=== PATIENT | male | born 1990 | race Caucasian/White ===

== ENCOUNTER 2019-01-30 15:48 | Emergency (ER) | payer MEDICAID ==
[2019-01-30 15:59] VITALS: BP 122/68
[2019-01-30 16:17] LABS: BASOPHILS # (AUTO) 0.04 x10^3/uL (0-0.1); BASOPHILS % (AUTO) 0 % (0-1); EOSINOPHILS # (AUTO) 0.14 x10^3/uL (0-0.4); EOSINOPHILS % (AUTO) 1 % (1-7); LYMPHOCYTES # (AUTO) 2.05 x10^3/uL (1-3.4); LYMPHOCYTES % (AUTO) 20 % (22-44); MD NO; MEAN CORPUSCULAR HEMOGLOBIN 30.4 pg (27.5-34.5); MEAN CORPUSCULAR HGB CONC 33.5 g/dL (33.2-36.2); MEAN CORPUSCULAR VOLUME 90.9 fL (81-97); MEAN PLATELET VOLUME 7.8 fL (7.4-10.4); MONOCYTES # (AUTO) 0.47 x10^3/uL (0.2-0.8); MONOCYTES % (AUTO) 5 % (2-9); NEUTROPHILS # (AUTO) 7.66 x10^3/uL (1.8-6.8); NEUTROPHILS % (AUTO) 74 % (42-75); PLATELET COUNT 339 x10^3/uL (130-400); RED BLOOD COUNT 4.74 x10^6/uL (4.38-5.82); RED CELL DISTRIBUTION WIDTH 14.8 % (9.4-14.8)
[2019-01-30 16:28] LABS: ALBUMIN 3.5 g/dL (3.4-5.0); ANION GAP 7 mmol/L (5-15); CALCIUM 9.3 mg/dL (8.5-10.1); CHLORIDE 106 mmol/L (98-107); CREATININE 0.92 mg/dL (0.7-1.3)
[2019-01-30 16:44] LABS: SALICYLATE LEVEL < 1.7 mg/dL (2.8-20.0)
--- NOTE | 2019-01-30 16:50 | NUR ---
Pt in bed, in suicide secured room, belongings bag x 1 stored in locker, sitter at doorway, meal tray ordered, no other needs at this time, awaiting psych placement, [facility].
[2019-01-30 17:05] LABS: AMPHETAMINE SCREEN, URINE Negative (Negative); BARBITURATE SCREEN, URINE Negative (Negative); BENZODIAZEPINE SCREEN, URINE Negative (Negative); CANNABINOID SCREEN, URINE Negative (Negative); COCAINE SCREEN, URINE Negative (Negative); METHADONE SCREEN, URINE Negative (Negative); OPIATE SCREEN, URINE Negative (Negative)
--- NOTE | 2019-01-30 17:50 | NUR ---
Pt asleep in bed in suicide secured room, sitter at doorway, awaiting psych placement, [facility].
--- NOTE | 2019-01-30 19:01 | NUR ---
Bedside report to Josh. Pt asleep in bed in suicide secured room, sitter at doorway, awaiting psych placement, [facility].
--- NOTE | 2019-01-30 19:02 | NUR ---
Received report from Stefanie. This RN to assume care. Introduced self to patient and gave meal tray.
--- NOTE | 2019-01-30 20:03 | NUR ---
Patient in [facility] resting without complaints. Respirations even and unlabored. Sitter outside.
--- NOTE | 2019-01-30 21:08 | NUR ---
Patient asleep in [facility]. Respirations even and unlabored. Sitter outside room.
[2019-01-31] MEDS ORDERED: QUET50TA5 PO (01:30)
[2019-01-31] MEDS ORDERED: MELO7.5T31 PO (01:30)
[2019-01-31] MEDS ORDERED: BUPR-86 PO (01:30)
[2019-01-31] MEDS ORDERED: TRAZ50TA66 PO (01:30)
== END 2019-01-30 22:20 ==
LOC: ED 19:25
DX: R45.851 Suicidal ideations (principal)
CPT/HCPCS: 36415; 80048; 80307; 82040; 85025; 99285

== ENCOUNTER 2019-01-30 20:58 | Inpatient (IN) | payer MEDICAID ==
[~2019-01-30] VITALS: Ht 166.6 cm; Wt 157.4 kg
[2019-01-30 22:00] VITALS: BP 104/73
[2019-01-30] MEDS ORDERED: ONDANSETRON ODT 4 MG PO PRN (22:00)
[2019-01-30] MEDS ORDERED: BISACODYL 10 MG SUPP PR PRN (22:00)
[2019-01-30] MEDS ORDERED: ACETAMINOPHEN 325 MG TABLET PO PRN (22:00)
[2019-01-30] MEDS ORDERED: POLYETHYLENE GLYCOL 17 GM PACKET PO PRN (22:00)
[2019-01-30] MEDS ORDERED: DOCUSATE 100 MG CAPSULE PO PRN (22:00)
[2019-01-31 00:50] LABS: MICROSCOPIC NOT IND
[2019-01-31 00:59] LABS: CULTURE INDICATED? NO
[2019-01-31] MEDS ORDERED: MELO7.5T31 PO (01:30)
[2019-01-31] MEDS ORDERED: TRAZ50TA66 PO (01:30)
[2019-01-31] MEDS ORDERED: BUPR-86 PO (01:30)
[2019-01-31] MEDS ORDERED: QUET50TA5 PO (01:30)
[2019-01-31 01:50] VITALS: BP 104/73
[2019-01-31 05:36] LABS: BASOPHILS # (AUTO) 0.08 x10^3/uL (0-0.1); BASOPHILS % (AUTO) 1 % (0-1); EOSINOPHILS # (AUTO) 0.23 x10^3/uL (0-0.4); EOSINOPHILS % (AUTO) 3 % (1-7); LYMPHOCYTES % (AUTO) 20 % (22-44); MD NO; MEAN CORPUSCULAR HEMOGLOBIN 30.5 pg (27.5-34.5); MEAN CORPUSCULAR HGB CONC 32.9 g/dL (33.2-36.2); MEAN CORPUSCULAR VOLUME 92.9 fL (81-97); MEAN PLATELET VOLUME 8.1 fL (7.4-10.4); MONOCYTES # (AUTO) 0.42 x10^3/uL (0.2-0.8); MONOCYTES % (AUTO) 5 % (2-9); NEUTROPHILS # (AUTO) 6.34 x10^3/uL (1.8-6.8); NEUTROPHILS % (AUTO) 72 % (42-75); PLATELET COUNT 308 x10^3/uL (130-400); RED BLOOD COUNT 4.43 x10^6/uL (4.38-5.82); RED CELL DISTRIBUTION WIDTH 15.3 % (9.4-14.8)
[2019-01-31 05:45] LABS: ANION GAP 6 mmol/L (5-15); CALCIUM 9.4 mg/dL (8.5-10.1); CHLORIDE 107 mmol/L (98-107)
[2019-01-31 06:13] LABS: CHOL/HDL RATIO 4.5; CHOLESTEROL, TOTAL 159 mg/dL (140-239); CREATININE 0.77 mg/dL (0.7-1.3); FREE T4 (FREE THYROXINE) 0.78 ng/dL (0.76-1.46); HDL CHOL % 22 % (26-37); HDL CHOLESTEROL (DIRECT) 35 mg/dL (40-60); LDL CHOLESTEROL,CALCULATED 98 mg/dL (54-169); LDL/HDL RATIO 2.8 (0.5-3.0); TRIGLYCERIDES 131 mg/dL (50-200); VLDL CHOLESTEROL 26 mg/dL (0-25)
[2019-01-31 07:26] VITALS: BP 126/80
[2019-01-31 19:15] VITALS: BP 107/74
[2019-02-01 07:23] VITALS: BP 114/73
[2019-02-01] MEDS: BUPROPION SR 150 MG TABLET PO SCH (08:56)
[2019-02-01] MEDS: MELOXICAM 15 MG TABLET PO SCH (08:57)
[2019-02-01] MEDS: SERTRALINE 50MG TABLET PO SCH (08:57)
[2019-02-01 19:00] VITALS: BP 141/81
[2019-02-02 07:27] VITALS: BP 121/72
[2019-02-02] MEDS: BUPROPION SR 150 MG TABLET PO SCH (08:27)
[2019-02-02] MEDS: MELOXICAM 15 MG TABLET PO SCH (08:27)
[2019-02-02] MEDS: SERTRALINE 50MG TABLET PO SCH (08:27)
[2019-02-02 19:26] VITALS: BP 144/80
[2019-02-03 07:43] VITALS: BP 153/76
[2019-02-03] MEDS: BUPROPION SR 150 MG TABLET PO SCH (09:08)
[2019-02-03] MEDS: MELOXICAM 15 MG TABLET PO SCH (09:08)
[2019-02-03] MEDS: SERTRALINE 50MG TABLET PO SCH (09:08)
[2019-02-03] MEDS ORDERED: SERT50TA28 PO (10:10)
[2019-02-03] MEDS ORDERED: BUPR150T73 PO (10:10)
== END 2019-02-03 10:35 | disposition home or self-care (01) | DRG 885 ==
LOC: 3E 22:19
PROVIDERS: ADMIT Psychiatry & Neurology Psychosomatic Medicine; ATTEND Psychiatry & Neurology Psychosomatic Medicine
PROC: 5A09357 Assistance with Respiratory Ventilation, Less than 24 Consecutive Hours, Continuous Positive Airway Pressure (ICD-10-PCS; principal; 2019-02-02)
DX: F31.30 Bipolar disorder, current episode depressed, mild or moderate severity, unspecified (principal); Z68.43 Body mass index [BMI] 50.0-59.9, adult; E66.01 Morbid (severe) obesity due to excess calories; F41.1 Generalized anxiety disorder; F43.10 Post-traumatic stress disorder, unspecified; F60.3 Borderline personality disorder; J44.9 Chronic obstructive pulmonary disease, unspecified; G40.909 Epilepsy, unspecified, not intractable, without status epilepticus; G47.33 Obstructive sleep apnea (adult) (pediatric); I10 Essential (primary) hypertension; Z79.1 Long term (current) use of non-steroidal anti-inflammatories (NSAID); Z79.899 Other long term (current) drug therapy; Z81.8 Family history of other mental and behavioral disorders; Z91.5 Personal history of self-harm; Z71.3 Dietary counseling and surveillance
CPT/HCPCS: 36415; 71045; 80048; 80061; 81003; 82607; 84439; 84443; 85025; 93005